=== PATIENT | male | born 1975 | race Two or more races ===

== ENCOUNTER 2017-05-26 16:15 | Emergency (ER) | payer SELFPAY ==
[2017-05-26] MEDS ORDERED: NORMAL SALINE 1000 ML 1,000 ML IV ONE (17:25)
--- NOTE | 2017-05-26 17:26 | ER Document Report ---
ED Medical Screen (RME) - General Chief Complaint: High Blood Pressure Stated Complaint: WEAKNESS,VOMITING Time Seen by Provider: 05/26/17 17:24 Notes: Patient states that he has had vomiting nausea and abdominal cramps since yesterday. He is also had hand tingling. He states he has been somewhat dizzy and weak. Patient states she has a history of hypertension but no other significant past medical problems. He states he normally drinks 1-2 beers a day but yesterday he had about 12 beers. - Related Data Allergies/Adverse Reactions: No Known Allergies Allergy (Unverified 04/03/14 19:43) Past Medical History - Social History Frequency of alcohol use: Heavy Drug Abuse: None - Past Medical History Cardiac Medical History: Reports: Hx Hypertension Renal/ Medical History: Denies: Hx Peritoneal Dialysis - Immunizations Hx Diphtheria, Pertussis, Tetanus Vaccination: No Physical Exam - Vital signs Vitals: Temp Pulse BP Pulse Ox 98.7 F 127 H 191/128 H 98 05/26/17 16:39 05/26/17 16:39 05/26/17 16:39 05/26/17 16:39 Course - Vital Signs Vital signs: Temp Pulse Resp BP Pulse Ox 98.7 F 127 H 191/128 H 98 05/26/17 16:39 05/26/17 16:39 05/26/17 16:39 05/26/17 16:39
[2017-05-26 18:23] LABS: ABSOLUTE BASOPHILS # (AUTO) 0.1 10^3/uL (0.0-0.2); ABSOLUTE LYMPHOCYTES (AUTO) 1.2 10^3/uL (0.5-4.7); ABSOLUTE MONOCYTES (AUTO) 0.5 10^3/uL (0.1-1.4); BASOPHILS % (AUTO) 0.6 % (0-2); EOSINOPHILS % (AUTO) 0.3 % (0-6); HEMATOCRIT 48.6 % (37.9-51.0); HEMOGLOBIN 16.8 g/dL (13.5-17.0); HGB HCT DIFFERENCE 1.8; LYMPHOCYTES % (AUTO) 12.5 % (13-45); MEAN CORPUSCULAR HEMOGLOBIN 32.3 pg (27.0-33.4); MEAN CORPUSCULAR HGB CONC 34.6 g/dL (32.0-36.0); MEAN CORPUSCULAR VOLUME 93 fl (80-97); MONOCYTES % (AUTO) 5.1 % (3-13); RED BLOOD COUNT 5.22 10^6/uL (4.35-5.55); RED CELL DISTRIBUTION WIDTH 13.2 % (11.5-14.0); SEGMENTED NEUTROPHILS % (AUTO) 81.5 % (42-78); WHITE BLOOD COUNT 9.9 10^3/uL (4.0-10.5)
[2017-05-26 18:42] LABS: ALANINE AMINOTRANSFERASE 62 U/L (21-72); ALBUMIN 4.8 g/dL (3.5-5.0); ALKALINE PHOSPHATASE 109 U/L (38-126); ANION GAP 16 (5-19); ASPARTATE AMINO TRANSFERASE 49 U/L (17-59); BILIRUBIN,DIRECT 0.4 mg/dL (0.0-0.4); BILIRUBIN,TOTAL 0.8 mg/dL (0.2-1.3); BLOOD UREA NITROGEN 11 mg/dL (7-20); CALCIUM 9.8 mg/dL (8.4-10.2); CARBON DIOXIDE 24 mmol/L (22-30); CHLORIDE 104 mmol/L (98-107); CREATININE RESULT 0.64 mg/dL (0.52-1.25); GLUCOSE 97 mg/dL (75-110); LIPASE 89.6 U/L (23-300); MAGNESIUM 1.7 mg/dL (1.6-2.3); POTASSIUM 4.2 mmol/L (3.6-5.0); SODIUM 143.5 mmol/L (137-145); TOTAL PROTEIN 8.7 g/dL (6.3-8.2)
[2017-05-26 18:48] LABS: ALCOHOL < 10 mg/dL (NONE DETECTED)
[2017-05-26] MEDS ORDERED: NORMAL SALINE 1000 ML 1,000 ML IV PRN (19:50)
[2017-05-26] MEDS ORDERED: ONDANSETRON HCL INJ/PF 4 MG/2 ML SDV IV ONE (19:50)
[2017-05-26] MEDS ORDERED: LORAZEPAM INJ 2 MG/1 ML VIAL IV ONE (19:50)
[2017-05-26 19:57] LABS: APPEARANCE,URINE CLEAR; BILIRUBIN,URINE NEGATIVE (NEGATIVE); GLUCOSE, URINE NEGATIVE (NEGATIVE); KETONES,URINE NEGATIVE (NEGATIVE); LEUKOCYTE ESTERASE,URINE NEGATIVE (NEGATIVE); NITRITE,URINE NEGATIVE (NEGATIVE); PROTEIN,URINE NEGATIVE (NEGATIVE); URINE SPECIFIC GRAVITY 1.017; UROBILINOGEN,URINE NEGATIVE mg/dL (<2.0)
[2017-05-26] MEDS ORDERED: CLONIDINE HCL 0.2 MG TABLET PO ONE (20:00)
--- NOTE | 2017-05-26 20:00 | RADIOLOGY REPORT (SQ) ---
EXAM DESCRIPTION: CT ABD/PELVIS WITH IV ONLY COMPLETED DATE/TIME: 05/26/2017 7:49 pm REASON FOR STUDY: ab pain COMPARISON: None. TECHNIQUE: CT scan of the abdomen and pelvis performed using helical scanning technique with dynamic intravenous contrast injection. No oral contrast. Images reviewed with lung, soft tissue, and bone windows. Reconstructed coronal and sagittal MPR images reviewed. Delayed images for evaluation of the urinary system also acquired. All images stored on PACS. All CT scanners at this facility use dose modulation, iterative reconstruction, and/or weight based d osing when appropriate to reduce radiation dose to as low as reasonably achievable (ALARA). [facility]: Dose Right [facility]: CareDose [facility]: Dose Right [facility]: Teradose 4D [facility]: People to Remember CONTRAST TYPE AND DOSE: contrast/concentration: Isovue 370.00 mg/ml; Total Contrast Delivered: 82.0 ml; Total Saline Delivered: 43.0 ml RENAL FUNCTION: None required. The patient is less than 50 years old. RADIATION DOSE: Up-to-date CT equipment and radiation dose reduction techniques were employed. CTDIv ol: 7.9 - 10.6 mGy. DLP: 1058 mGy-cm.. LIMITATIONS: Study is limited due to motion artifact. FINDINGS: LOWER CHEST: No significant findings. No nodules or infiltrates. LIVER: Normal size. No masses. No dilated ducts. SPLEEN: Normal size. No focal lesions. PANCREAS: No masses. No significant calcifications. No adjacent inflammation or peripancreatic fluid collections. Pancreatic duct not dilated. GALLBLADDER: No identified stones by CT criteria. No inflammatory changes to suggest cholecystitis. ADRENAL GLANDS: No significant masses or asymmetry. RIGHT KIDNEY AND URETER: No solid masses. No significant calcifications. No hydronephrosis or hyd roureter. LEFT KIDNEY AND URETER: No solid masses. No significant calcifications. No hydronephrosis or hydr oureter. AORTA AND VESSELS: No aneurysm. No dissection. Renal arteries, SMA, celiac without stenosis. RETROPERITONEUM: No retroperitoneal adenopathy, hemorrhage or masses. Couple nonenlarged periaortic lymph nodes are identified. BOWEL AND PERITONEAL CAVITY: No masses or inflammatory changes. No free fluid or peritoneal masses. APPENDIX: Normal. PELVIS: No mass. No free fluid. Normal bladder. ABDOMINAL WALL: No masses. No hernias. BONES: No significant or acute findings. OTHER: No other significant finding. IMPRESSION: NO SIGNIFICANT OR ACUTE FINDING IN THE ABDOMEN OR PELVIS ON CT SCAN WITH IV CONTRAST. TECHNICAL DOCUMENTATION: JOB ID: [id number] Quality ID # [id number]: Final reports with documentation of one or more dose reduction techniques (e.g., Au tomated exposure control, adjustment of the mA and/or kV according to patient size, use of iterative reconstruction technique) 2010 [employer]- All Rights Reserved
[2017-05-26 20:20] LABS: URINE BARBITURATES SCREEN NEGATIVE; URINE METHADONE SCREEN NEGATIVE; URINE OPIATES LOW NEGATIVE; URINE PHENCYCLIDINE SCREEN NEGATIVE
--- NOTE | 2017-05-26 20:39 | ER Document Report ---
ED General - General Chief Complaint: High Blood Pressure Stated Complaint: WEAKNESS,VOMITING Time Seen by Provider: 05/26/17 17:24 Mode of Arrival: Ambulatory Information source: Patient Notes: 41-year-old male who drank 12 beers yesterday presents with complaints of abdominal pain nausea vomiting. Patient notes at this time he has no abdominal pain however was having symptoms intermittently throughout the day. Patient denies any fevers or chills. Notes he normally drinks only 1-2 beers a day Patient denies vomiting any blood - HPI Onset: This morning Onset/Duration: Sudden Quality of pain: Sharp Severity: Mild Pain Level: 1 Associated symptoms: Nausea, Vomiting Exacerbated by: Denies Relieved by: Denies Similar symptoms previously: No Recently seen / treated by doctor: No - Related Data Allergies/Adverse Reactions: No Known Allergies Allergy (Unverified 04/03/14 19:43) Past Medical History - Social History Smoking Status: Current Every Day Smoker Cigarette use (# per day): Yes Chew tobacco use (# tins/day): No Smoking Education Provided: No Frequency of alcohol use: Heavy Drug Abuse: None Family History: Reviewed & Not Pertinent - Past Medical History Cardiac Medical History: Reports: Hx Hypertension Renal/ Medical History: Denies: Hx Peritoneal Dialysis - Immunizations Hx Diphtheria, Pertussis, Tetanus Vaccination: No Review of Systems - Review of Systems Notes: REVIEW OF SYSTEMS: CONSTITUTIONAL : Denies fever, chills, or sweats. Denies recent illness. EENT: Denies eye, ear, throat, or mouth pain or symptoms. Denies nasal or sinus congestion or discharge. Denies throat, tongue, or mouth swelling or difficulty swallowing. CARDIOVASCULAR: Denies chest pain. Denies palpitations or racing or irregular heart beat. Denies ankle edema. RESPIRATORY: Denies cough, cold, or chest congestion. Denies shortness of breath, difficulty breathing, or wheezing. GASTROINTESTINAL: Admits to abdominal pain nausea vomiting GENITOURINARY: Denies difficulty urinating, painful urination, burning, frequency, blood in urine, or discharge. MUSCULOSKELETAL: Denies back or neck pain or stiffness. Denies joint pain or swelling. SKIN: Denies rash, lesions or sores. HEMATOLOGIC : Denies easy bruising or bleeding. LYMPHATIC: Denies swollen, enlarged glands. NEUROLOGICAL: Denies confusion or altered mental status. Denies passing out or loss of consciousness. Denies dizziness or lightheadedness. Denies headache. Denies weakness or paralysis or loss of use of either side. Denies problems with gait or speech. Denies sensory loss, numbness, or tingling. Denies seizures. PSYCHIATRIC: Denies anxiety or stress. Denies depression, suicidal ideation, or homicidal ideation. ALL OTHER SYSTEMS REVIEWED AND NEGATIVE. Dictation was performed using y prime voice recognition software PHYSICAL EXAMINATION: GENERAL: Well-appearing, well-nourished and in no acute distress. HEAD: Atraumatic, normocephalic. EYES: Pupils equal round and reactive to light, extraocular movements intact, sclera anicteric, conjunctiva are normal. ENT: Nares patent, oropharynx clear without exudates. Moist mucous membranes. NECK: Normal range of motion, supple without lymphadenopathy LUNGS: Breath sounds clear to auscultation bilaterally and equal. No wheezes rales or rhonchi. HEART: Regular rate and rhythm without murmurs ABDOMEN: Soft, nontender, nondistended abdomen. No guarding, no rebound. No masses appreciated. Musculoskeletal: Normal range of motion, no pitting or edema. No cyanosis. NEUROLOGICAL: Cranial nerves grossly intact. Normal speech, normal gait. Normal sensory, motor exams PSYCH: Normal mood, normal affect. SKIN: Warm, Dry, normal turgor, no rashes or lesions noted. Physical Exam - Vital signs Vitals: Temp Pulse BP Pulse Ox 98.7 F 127 H 191/128 H 98 05/26/17 16:39 05/26/17 16:39 05/26/17 16:39 05/26/17 16:39 Course - Re-evaluation Re-evalutation: 05/26/17 20:37 Lab work notes no significant abnormality, patient given fluids and Ativan and is otherwise well-appearing no distress 05/26/17 22:49 Patient's vital signs have resolved completely, he feels well will be discharged home with nausea control. It was clarified to me that the patient actually drank 24 beers yesterday which would definitely cause him to be nauseous and vomiting Imaging is negative After performing a Medical Screening Examination, I estimate there is LOW risk for ACUTE APPENDICITIS, BOWEL OBSTRUCTION, ACUTE CHOLECYSTITIS, PERFORATED DIVERTICULITIS, INCARCERATED HERNIA, PANCREATITIS, TESTICULAR TORSION or PERFORATED ULCER, thus I consider the discharge disposition reasonable. Also, there is no evidence or peritonitis, sepsis, or toxicity. I have reevaluated this patient multiple times and no significant life threatening changes are noted. The patient and I have discussed the diagnosis and risks, and we agree with discharging home with close follow-up with the understanding that symptoms and presentations can change. We also discussed returning to the Emergency Department immediately if new or worsening symptoms occur. We have discussed the symptoms which are most concerning (e.g., bloody stool, fever, changing or worsening pain, intractable vomiting - standard verbal up date) that necessitate immediate return. - Vital Signs Vital signs: Temp Pulse Resp BP Pulse Ox 98.7 F 127 H 23 H 167/115 H 99 05/26/17 16:39 05/26/17 16:39 05/26/17 20:30 05/26/17 20:30 05/26/17 20:30 - Laboratory Result Diagrams: 05/26/17 18:00 05/26/17 18:00 Laboratory results interpreted by me: 05/26/17 05/26/17 18:00 18:00 Seg Neutrophils % 81.5 H Lymphocytes % 12.5 L Total Protein 8.7 H - Diagnostic Test Radiology reviewed: Image reviewed, Reports reviewed Discharge - Discharge Clinical Impression: Alcohol use Hypertension Qualifiers: Hypertension type: essential hypertension Qualified Code(s): I10 - Essential ( primary) hypertension Nausea & vomiting Qualifiers: Vomiting type: unspecified Vomiting Intractability: non-intractable Qualified Code(s): R11.2 - Nausea with vomiting, unspecified Condition: Stable Disposition: HOME, SELF-CARE Instructions: High Blood Pressure, Requiring Treatment ([facility]) Additional Instructions: Follow up with your physician tomorrow for further care or return to the ED IMMEDIATELY if symptoms worsen or new concerns occur. If you cannot afford to follow up with your primary care physician a list of low cost clinics have been provided at the end of your discharge papers as well.
[2017-05-26] MEDS ORDERED: ONDANSETRON ODT 4 MG TAB (6 TAB/DSPK) PO PRN (21:41)
[2017-05-26 21:50] VITALS: BP 158/113
== END 2017-05-26 21:50 | disposition home or self-care (01) ==
LOC: ER 16:15
DX: R11.2 Nausea with vomiting, unspecified (principal); R10.9 Unspecified abdominal pain; Z72.89 Other problems related to lifestyle; I10 Essential (primary) hypertension; F17.210 Nicotine dependence, cigarettes, uncomplicated
CPT/HCPCS: 99284; 96361; 96374; 96375; 36415; 80307 ×2; 83690; 83735; 85025; 80053; 81001; 74177; J2060; J2405; J7030

== ENCOUNTER 2017-06-17 17:34 | Emergency (ER) | payer SELFPAY ==
[2017-06-17] MEDS ORDERED: NORMAL SALINE 1000 ML 1,000 ML IV ONE ×3 (18:01→22:00)
--- NOTE | 2017-06-17 18:03 | ER Document Report ---
ED Medical Screen (RME) - General Chief Complaint: Abdominal Pain Stated Complaint: ABDOMINAL,LEG PAIN Time Seen by Provider: 06/17/17 18:01 Notes: Patient presents with severe epigastric pain and vomiting as well as bilateral leg pain. Patient had a similar presentation approximately 2 weeks ago after drinking 24 beers. TRAVEL OUTSIDE OF THE [place] IN LAST 30 DAYS: No - Related Data Allergies/Adverse Reactions: No Known Allergies Allergy (Verified 06/17/17 17:39) Past Medical History - Social History Chew tobacco use (# tins/day): No Frequency of alcohol use: Social Drug Abuse: None - Past Medical History Cardiac Medical History: Reports: Hx Hypercholesterolemia, Hx Hypertension Renal/ Medical History: Denies: Hx Peritoneal Dialysis - Immunizations Hx Diphtheria, Pertussis, Tetanus Vaccination: No Physical Exam - Vital signs Vitals: Temp Resp BP Pulse Ox 98.3 F 18 190/140 H 99 06/17/17 17:39 06/17/17 17:39 06/17/17 17:39 06/17/17 17:39 Course - Vital Signs Vital signs: Temp Pulse Resp BP Pulse Ox 98.3 F 18 190/140 H 99 06/17/17 17:39 06/17/17 17:39 06/17/17 17:39 06/17/17 17:39
[2017-06-17 18:54] LABS: APPEARANCE,URINE CLEAR; BILIRUBIN,URINE NEGATIVE (NEGATIVE); GLUCOSE, URINE NEGATIVE (NEGATIVE); KETONES,URINE NEGATIVE (NEGATIVE); LEUKOCYTE ESTERASE,URINE TRACE (NEGATIVE); NITRITE,URINE NEGATIVE (NEGATIVE); PROTEIN,URINE NEGATIVE (NEGATIVE); URINE SPECIFIC GRAVITY 1.008; UROBILINOGEN,URINE NEGATIVE mg/dL (<2.0)
[2017-06-17] MEDS ORDERED: LIDOCAINE 2% VISCOUS SOLN 20 ML UDCUP PO ONE (18:59)
[2017-06-17] MEDS ORDERED: MAG HYDROX/AL HYDROX/SIMETH SUSP 30 ML UDCUP PO ONE (18:59)
[2017-06-17] MEDS ORDERED: METOCLOPRAMIDE HCL ORAL SOLN 10 MG/10 ML UDCUP PO ONE (18:59)
--- NOTE | 2017-06-17 19:00 | ER Document Report ---
ED GI/ - General Chief Complaint: Abdominal Pain Stated Complaint: ABDOMINAL,LEG PAIN Time Seen by Provider: 06/17/17 18:01 Notes: The patient is a 41-year-old male, past medical history daily alcohol drinker, gastritis, presents with 2 days of intermittent epigastric pain. He is also having nausea and vomited once. Pt also having B/L leg cramping. He denies fevers, back pain, urinary symptoms, chest pain, shortness of breath or rash. TRAVEL OUTSIDE OF THE [place] IN LAST 30 DAYS: No - Related Data Allergies/Adverse Reactions: No Known Allergies Allergy (Verified 06/17/17 17:39) Past Medical History - General Information source: Patient - Social History Smoking Status: Current Some Day Smoker Chew tobacco use (# tins/day): No Frequency of alcohol use: Social Drug Abuse: None Family History: Reviewed & Not Pertinent Patient has suicidal ideation: No Patient has homicidal ideation: No - Past Medical History Cardiac Medical History: Reports: Hx Hypercholesterolemia, Hx Hypertension Renal/ Medical History: Denies: Hx Peritoneal Dialysis - Immunizations Hx Diphtheria, Pertussis, Tetanus Vaccination: No Review of Systems - Review of Systems Notes: REVIEW OF SYSTEMS: CONSTITUTIONAL: -fevers, -chills EENT: -eye pain, -difficulty swallowing, -nasal congestion CARDIOVASCULAR:-chest pain, -syncope. RESPIRATORY: -cough, -SOB GASTROINTESTINAL: +epigastric abdominal pain, +nausea, +vomiting, -diarrhea GENITOURINARY: -dysuria, -hematuria MUSCULOSKELETAL: -back pain, -neck pain SKIN: -rash or skin lesions. HEMATOLOGIC: -easy bruising or bleeding. LYMPHATIC: -swollen, enlarged glands. NEUROLOGICAL: -altered mental status or loss of consciousness, -headache, - neurologic symptoms PSYCHIATRIC: -anxiety, -depression. ALL OTHER SYSTEMS REVIEWED AND NEGATIVE. Physical Exam - Vital signs Vitals: Temp Resp BP Pulse Ox 98.3 F 18 190/140 H 99 06/17/17 17:39 06/17/17 17:39 06/17/17 17:39 06/17/17 17:39 - Notes Notes: PHYSICAL EXAMINATION: GENERAL: Well-appearing, well-nourished and in no acute distress. HEAD: Atraumatic, normocephalic. EYES: Pupils equal round and reactive to light, extraocular movements intact, sclera anicteric, conjunctiva are normal. ENT: nares patent, oropharynx clear without exudates. Moist mucous membranes. NECK: Normal range of motion, supple without lymphadenopathy LUNGS: Breath sounds clear to auscultation bilaterally and equal. No wheezes rales or rhonchi. HEART: Mild tachycardia. ABDOMEN: Soft, mild epigastric tenderness, normoactive bowel sounds. No guarding, no rebound. No masses appreciated. EXTREMITIES: Normal range of motion, no pitting or edema. No cyanosis. NEUROLOGICAL: Cranial nerves grossly intact. Normal speech, normal gait. Normal sensory and motor exams. PSYCH: Normal mood, normal affect. SKIN: Warm, Dry, normal turgor, no rashes or lesions noted. Course - Re-evaluation Re-evalutation: Hx obtained using deputy director computer. Patient appears well. He has epigastric tenderness, but a normal lipase. This may be related to his gastritis from drinking. After GI cocktail, his abdominal pain completely resolved and a repeat abdominal exam reveals non-tenderness in his epigastric region. Told him to cut down on his alcohol use and always take his BP meds. Suspect also a mild component of alcohol withdrawal occurring in the ER with the initial hypertension and tachycardia. After Ativan and fluids, he feels much better. Provided patient with follow-up at the [facility]. - Vital Signs Vital signs: Temp Pulse Resp BP Pulse Ox 98.3 F 20 152/115 H 97 06/17/17 17:39 06/17/17 22:04 06/17/17 22:04 06/17/17 22:04 - Laboratory Result Diagrams: 06/17/17 19:38 06/17/17 19:38 Laboratory results interpreted by me: 06/17/17 06/17/17 06/17/17 18:11 19:38 19:38 WBC 10.6 H Seg Neutrophils % 82.1 H Lymphocytes % 11.3 L Absolute Neutrophils 8.7 H Direct Bilirubin 0.5 H Ur Leukocyte Esterase TRACE H - Diagnostic Test Radiology reviewed: Image reviewed, Reports reviewed Radiology results interpreted by me: CXR: NAD Discharge - Discharge Clinical Impression: Epigastric pain Condition: Stable Disposition: HOME, SELF-CARE Additional Instructions: ABDOMINAL PAIN: There are many causes of abdominal pain. Pain can mean a serious problem requiring surgery (such as appendicitis). It can also be an innocent problem that goes away on its own (such as a viral infection). Often, time must pass to determine the cause of pain. The physician does not feel that hospitalization is necessary, at present. Things may change within the next 24 hours. Call the doctor or come back for re- examination if any problems occur, such as: (1) Pain that becomes more severe, steady, or becomes concentrated in one specific area. Also, pain that is more severe with movement or coughing. (2) Vomiting that persists or becomes more frequent. (3) Blood in the vomitus, urine, or bowel movements. Blood in the stool may have a tarry or black appearance. (4) Shaking chills or fever greater than 100 degrees F. (5) The abdomen becomes more distended or swollen. (6) Bowel movements cease. (7) Failure to improve as expected. NORMAL EXAM AND WORKUP: At this time, your examination and workup show no significant abnormality. No significant abnormal physical findings are noted. All laboratory, EKG, and imaging (x-ray, CT scans, ultrasound) studies that were ordered show no significant abnormality. Although your examination and all studies that were ordered showed no significant abnormal finding, there are no examinations and no studies that are 100% accurate. There is always the possibility that some abnormality could exist and not be detected with physical examination or within the limits and capabilities of laboratory and other studies. You should return or follow up as you were instructed on your visit today for further evaluation if your symptoms do not resolve. ANTINAUSEA MEDICATION: You have been given a medication to suppress nausea and vomiting. This type of medication can be given as a shot, pill, or suppository. It will usually last for many hours. Pills and shots usually last six to eight hours, suppositories last about 12 hours. For the typical illness, only one or two doses of the medication may be necessary. Mild lightheadedness may occur. This type of medicine can cause drowsiness. Do not drive or operate dangerous machinery while under its influence. Do not mix with alcohol. See your doctor at once if you have muscle spasms or tightness, or uncontrollable motions (particularly of the neck, mouth, or jaw). Persistent vomiting or severe lightheadedness should also be evaluated by the physician. FOLLOW-UP CARE: If you have been referred to a physician for follow-up care, call the physician s office for an appointment as you were instructed or within the next two days. If you experience worsening or a significant change in your symptoms, notify the physician immediately or return to the Emergency Department at any time for re-evaluation. Prescriptions: Lisinopril 5 mg PO DAILY #30 tablet Omeprazole Magnesium [Prilosec Otc] 20 mg PO BID #20 tablet.dr Forms: Elevated Blood Pressure Referrals: [facility] [Outside] - Follow up as needed
[2017-06-17 19:18] LABS: URINE BARBITURATES SCREEN NEGATIVE; URINE METHADONE SCREEN NEGATIVE; URINE OPIATES LOW NEGATIVE; URINE PHENCYCLIDINE SCREEN NEGATIVE
[2017-06-17 19:52] LABS: ABSOLUTE BASOPHILS # (AUTO) 0.1 10^3/uL (0.0-0.2); ABSOLUTE EOSINOPHILS # (AUTO) 0.1 10^3/uL (0.0-0.6); ABSOLUTE LYMPHOCYTES (AUTO) 1.2 10^3/uL (0.5-4.7); ABSOLUTE MONOCYTES (AUTO) 0.6 10^3/uL (0.1-1.4); ABSOLUTE NEUT (AUTO) 8.7 10^3/uL (1.7-8.2); BASOPHILS % (AUTO) 0.6 % (0-2); EOSINOPHILS % (AUTO) 0.5 % (0-6); HEMATOCRIT 47.4 % (37.9-51.0); HEMOGLOBIN 16.6 g/dL (13.5-17.0); HGB HCT DIFFERENCE 2.4; LYMPHOCYTES % (AUTO) 11.3 % (13-45); MEAN CORPUSCULAR HEMOGLOBIN 32.8 pg (27.0-33.4); MEAN CORPUSCULAR HGB CONC 35.1 g/dL (32.0-36.0); MEAN CORPUSCULAR VOLUME 94 fl (80-97); MONOCYTES % (AUTO) 5.5 % (3-13); RED BLOOD COUNT 5.07 10^6/uL (4.35-5.55); SEGMENTED NEUTROPHILS % (AUTO) 82.1 % (42-78); WHITE BLOOD COUNT 10.6 10^3/uL (4.0-10.5)
[2017-06-17 20:06] LABS: ALANINE AMINOTRANSFERASE 66 U/L (21-72); ALBUMIN 4.5 g/dL (3.5-5.0); ALCOHOL < 10 mg/dL (NONE DETECTED); ALKALINE PHOSPHATASE 116 U/L (38-126); ANION GAP 13 (5-19); ASPARTATE AMINO TRANSFERASE 53 U/L (17-59); BILIRUBIN,DIRECT 0.5 mg/dL (0.0-0.4); BILIRUBIN,TOTAL 0.8 mg/dL (0.2-1.3); BLOOD UREA NITROGEN 10 mg/dL (7-20); CALCIUM 10.1 mg/dL (8.4-10.2); CARBON DIOXIDE 22 mmol/L (22-30); CHLORIDE 105 mmol/L (98-107); CREATINE KINASE 66 U/L (55-170); CREATININE RESULT 0.58 mg/dL (0.52-1.25); GLUCOSE 95 mg/dL (75-110); POTASSIUM 4.4 mmol/L (3.6-5.0); SODIUM 140.2 mmol/L (137-145); TOTAL PROTEIN 8.1 g/dL (6.3-8.2)
[2017-06-17] MEDS ORDERED: LORAZEPAM INJ 2 MG/1 ML VIAL IV ONE (21:14)
[2017-06-17 22:06] VITALS: BP 152/115
--- NOTE | 2017-06-17 23:52 | EKG REPORT ---
SEVERITY:- ABNORMAL ECG - SINUS TACHYCARDIA FIRST DEGREE AV BLOCK ANTERIOR INFARCT, AGE INDETERMINATE BORDERLINE T ABNORMALITIES, INFERIOR LEADS : Confirmed by: Buck Lloyd 17-Jun-2017 23:52:35
== END 2017-06-17 22:21 | disposition home or self-care (01) ==
LOC: ER 17:34
DX: R10.13 Epigastric pain (principal); R11.2 Nausea with vomiting, unspecified; R25.2 Cramp and spasm; F17.200 Nicotine dependence, unspecified, uncomplicated; I10 Essential (primary) hypertension; Z87.19 Personal history of other diseases of the digestive system; R00.0 Tachycardia, unspecified
CPT/HCPCS: 93005; 99284; 96361; 96374; 36415; 80307 ×2; 82550; 83690; 85025; 80053; 81001; 83880; 93010; J3490; J2060; J7030

== ENCOUNTER 2017-12-29 18:40 | Emergency (ER) | payer SELFPAY ==
[2017-12-29] MEDS ORDERED: ASPIRIN 81 MG TABLET, CHEWABLE PO ONE (19:19)
[2017-12-29] MEDS ORDERED: NORMAL SALINE 1000 ML 1,000 ML IV PRN (19:20)
[2017-12-29] MEDS ORDERED: NORMAL SALINE 1000 ML 1,000 ML IV ONE ×2 (19:20→22:06)
[2017-12-29] MEDS ORDERED: LORAZEPAM INJ 2 MG/1 ML VIAL IV ONE ×2 (19:20→20:12)
--- NOTE | 2017-12-29 19:22 | ER Document Report ---
ED Medical Screen (RME) - General Chief Complaint: Vomiting Stated Complaint: VOMITING Time Seen by Provider: 12/29/17 19:19 Notes: 41 years old male with a history of alcohol abuse, smoking presents today with nausea vomiting, vomited about 20 times, having neck pain of the chest pain as well as abdominal pain. No fever chills or other constitutional symptoms I have greeted and performed a rapid initial assessment of this patient. A comprehensive ED assessment and evaluation of the patient, analysis of test results and completion of the medical decision making process will be conducted by additional ED providers. PHYSICAL EXAMINATION: GENERAL: Well-appearing, well-nourished and in no acute distress. HEAD: Atraumatic, normocephalic. EYES: Pupils equal round extraocular movements intact, conjunctiva are normal. ENT: Nares patent NECK: Normal range of motion LUNGS: No respiratory distress Musculoskeletal: Normal range of motion NEUROLOGICAL: Normal speech, normal gait. Flapping tremor noted PSYCH: Normal mood, normal affect. SKIN: Warm, Dry, normal turgor, no rashes or lesions noted. TRAVEL OUTSIDE OF THE [place] IN LAST 30 DAYS: No - Related Data Allergies/Adverse Reactions: No Known Allergies Allergy (Verified 06/17/17 17:39) Past Medical History - Social History Chew tobacco use (# tins/day): No Frequency of alcohol use: Daily 2 beers/day Drug Abuse: None - Past Medical History Cardiac Medical History: Reports: Hx Hypercholesterolemia, Hx Hypertension Renal/ Medical History: Denies: Hx Peritoneal Dialysis - Immunizations Hx Diphtheria, Pertussis, Tetanus Vaccination: No Physical Exam - Vital signs Vitals: Temp Pulse Resp BP Pulse Ox 99.2 F 141 H 20 152/124 H 98 12/29/17 18:46 12/29/17 18:46 12/29/17 18:46 12/29/17 18:46 12/29/17 18:46 Course - Vital Signs Vital signs: Temp Pulse Resp BP Pulse Ox 99.2 F 141 H 20 152/124 H 98 12/29/17 18:46 12/29/17 18:46 12/29/17 18:46 12/29/17 18:46 12/29/17 18:46
[2017-12-29 20:07] LABS: ABSOLUTE BASOPHILS # (AUTO) 0.1 10^3/uL (0.0-0.2); ABSOLUTE LYMPHOCYTES (AUTO) 1.2 10^3/uL (0.5-4.7); ABSOLUTE MONOCYTES (AUTO) 0.5 10^3/uL (0.1-1.4); ABSOLUTE NEUT (AUTO) 10.3 10^3/uL (1.7-8.2); BASOPHILS % (AUTO) 0.8 % (0-2); EOSINOPHILS % (AUTO) 0.3 % (0-6); HEMATOCRIT 50.5 % (37.9-51.0); HEMOGLOBIN 17.7 g/dL (13.5-17.0); LYMPHOCYTES % (AUTO) 10.1 % (13-45); MEAN CORPUSCULAR HEMOGLOBIN 32.6 pg (27.0-33.4); MEAN CORPUSCULAR HGB CONC 35.1 g/dL (32.0-36.0); MEAN CORPUSCULAR VOLUME 93 fl (80-97); MONOCYTES % (AUTO) 4.3 % (3-13); PLATELET COUNT 296 10^3/uL (150-450); RED BLOOD COUNT 5.43 10^6/uL (4.35-5.55); RED CELL DISTRIBUTION WIDTH 13.3 % (11.5-14.0); SEGMENTED NEUTROPHILS % (AUTO) 84.5 % (42-78); TOTAL CELLS COUNTED % (AUTO) 100 %; WHITE BLOOD COUNT 12.1 10^3/uL (4.0-10.5)
[2017-12-29] MEDS ORDERED: ONDANSETRON HCL INJ/PF 4 MG/2 ML SDV IV ONE (20:12)
--- NOTE | 2017-12-29 20:13 | ER Document Report ---
ED GI/ - General Chief Complaint: Vomiting Stated Complaint: VOMITING Time Seen by Provider: 12/29/17 19:19 Mode of Arrival: Ambulatory Information source: Patient Notes: Pt is a 42 year old alcoholic who presents to the ER today for nausea/vomiting, chills starting this morning. Pt had his last drink last night, states that he usually drinks 24 beer cans a day. He does not want to stop. He states he just "ran out of beer" today and didn't have the money to get any. Pt admits to abdominal pain and a bruise to his left lower side that he doesn't remember how he got. He denies diarrhea, fever that he knows of. He denies chest pain with me although he apparently told triage he did have chest pain. He has no history of any cardiac issues, heart attack, stroke, HTN or HLD. TRAVEL OUTSIDE OF THE [place] IN LAST 30 DAYS: No - Related Data Allergies/Adverse Reactions: No Known Allergies Allergy (Verified 06/17/17 17:39) Past Medical History - General Information source: Patient - Social History Smoking Status: Current Every Day Smoker Chew tobacco use (# tins/day): No Frequency of alcohol use: Daily 2 beers/day Drug Abuse: None Family History: Reviewed & Not Pertinent Patient has suicidal ideation: No Patient has homicidal ideation: No - Past Medical History Cardiac Medical History: Reports: Hx Hypercholesterolemia, Hx Hypertension Renal/ Medical History: Denies: Hx Peritoneal Dialysis - Immunizations Hx Diphtheria, Pertussis, Tetanus Vaccination: No Review of Systems - Review of Systems Constitutional: See HPI EENT: No symptoms reported Cardiovascular: No symptoms reported Respiratory: No symptoms reported Gastrointestinal: See HPI Genitourinary: No symptoms reported Male Genitourinary: No symptoms reported Musculoskeletal: No symptoms reported Skin: No symptoms reported Hematologic/Lymphatic: No symptoms reported Neurological/Psychological: See HPI Physical Exam - Vital signs Vitals: Temp Pulse Resp BP Pulse Ox 99.2 F 141 H 20 152/124 H 98 12/29/17 18:46 12/29/17 18:46 12/29/17 18:46 12/29/17 18:46 12/29/17 18:46 - Notes Notes: PHYSICAL EXAMINATION: GENERAL: uncomfortable, but in no acute distress. HEAD: Atraumatic, normocephalic. EYES: Pupils equal round and reactive to light, extraocular movements intact, sclera anicteric, conjunctiva are normal. ENT: Airway patent NECK: Normal range of motion, supple without lymphadenopathy LUNGS: CTAB and equal. No wheezes rales or rhonchi. HEART: tachycardic, but with regular rhythm without murmurs ABDOMEN: ecchymoses to left lower side, tender, Soft, No guarding, no rebound BACK: no vertebral tenderness, normal ROM GI/: no CVA tenderness EXTREMITIES: Normal range of motion, no pitting edema. No cyanosis. NEUROLOGICAL: Cranial nerves grossly intact. Normal sensory/motor exams. PSYCH: normal affect SKIN: Warm, Dry, normal turgor, see abd above Course - Re-evaluation Re-evalutation: 12/30/17 06:15 labwork is really unremarkable, CT abd with IV contrast due to bruise on left side was performed and negative, chest x ray negative. pt was tachycardic at 140bpm on arrival, after fluids and ativan, down to 99 manually before discharge. pt feels "much better." I do not believe admission is necessary at this time. Pt has no intention of quitting drinking, laughs when I try to educate him on cirrhosis and other negative outcomes from drinking alcohol. and son were here to translate and also do not seem to comprehend how serious his alcohol problem is despite my education. - Vital Signs Vital signs: Temp Pulse Resp BP Pulse Ox 99.2 F 112 H 18 136/92 H 96 12/29/17 18:46 12/29/17 20:10 12/30/17 01:01 12/30/17 01:00 12/30/17 01:01 - Laboratory Result Diagrams: 12/29/17 19:43 12/29/17 19:43 Laboratory results interpreted by me: 12/29/17 12/29/17 19:43 19:43 WBC 12.1 H Hgb 17.7 H Seg Neutrophils % 84.5 H Lymphocytes % 10.1 L Absolute Neutrophils 10.3 H Calcium 10.3 H Direct Bilirubin 0.5 H AST 66 H Alkaline Phosphatase 136 H Total Protein 8.9 H Discharge - Discharge Clinical Impression: Alcohol withdrawal Qualifiers: Complication of substance-induced condition: uncomplicated Qualified Code(s): F10.230 - Alcohol dependence with withdrawal, uncomplicated Condition: Stable Disposition: HOME, SELF-CARE Additional Instructions: Please slow down on your drinking. Return immediately for any new or worsening symptoms. Follow up with primary care provider, call tomorrow to make followup appointment.
[2017-12-29 20:23] LABS: ALANINE AMINOTRANSFERASE 65 U/L (21-72); ALBUMIN 4.8 g/dL (3.5-5.0); ALKALINE PHOSPHATASE 136 U/L (38-126); ANION GAP 18 (5-19); ASPARTATE AMINO TRANSFERASE 66 U/L (17-59); BILIRUBIN,DIRECT 0.5 mg/dL (0.0-0.4); BLOOD UREA NITROGEN 9 mg/dL (7-20); CALCIUM 10.3 mg/dL (8.4-10.2); CARBON DIOXIDE 25 mmol/L (22-30); CHLORIDE 99 mmol/L (98-107); CREATINE KINASE 77 U/L (55-170); GLUCOSE 97 mg/dL (75-110); POTASSIUM 4.5 mmol/L (3.6-5.0); SODIUM 142.2 mmol/L (137-145); TOTAL PROTEIN 8.9 g/dL (6.3-8.2)
[2017-12-29 20:25] LABS: ALCOHOL < 10 mg/dL (NONE DETECTED)
[2017-12-29 20:35] LABS: CREATINE KINASE MB 0.56 ng/mL (<4.55); TROPONIN I < 0.012 ng/mL
--- NOTE | 2017-12-29 21:17 | RADIOLOGY REPORT (SQ) ---
EXAM DESCRIPTION: CHEST SINGLE VIEW COMPLETED DATE/TIME: 12/29/2017 8:53 pm REASON FOR STUDY: Shortness of breath COMPARISON: None. EXAM PARAMETERS: NUMBER OF VIEWS: One view. TECHNIQUE: Single frontal radiographic view of the chest acquired. RADIATION DOSE: NA LIMITATIONS: None. FINDINGS: LUNGS AND PLEURA: No opacities, masses or pneumothorax. No pleural effusion. MEDIASTINUM AND HILAR STRUCTURES: No masses. Contour normal. HEART AND VASCULAR STRUCTURES: Heart normal in size. Normal vasculature. BONES: No acute findings. HARDWARE: None in the chest. OTHER: No other significant finding. IMPRESSION: NO ACUTE RADIOGRAPHIC FINDING IN THE CHEST. TECHNICAL DOCUMENTATION: JOB ID: [id number] [employer]- All Rights Reserved Reading location - IP/workstation name: [email or web address]
[2017-12-29] MEDS ORDERED: DIPHENHYDRAMINE HCL 50 MG/ML VIAL IV ONE (22:05)
[2017-12-29] MEDS ORDERED: DIPHENHYDRAMINE HCL 50 MG/ML VIAL ONE (22:07)
--- NOTE | 2017-12-29 22:28 | RADIOLOGY REPORT (SQ) ---
EXAM DESCRIPTION: CT ABD/PELVIS WITH IV ONLY COMPLETED DATE/TIME: 12/29/2017 10:03 pm REASON FOR STUDY: bruise and pain llq, unknown injury, etoh COMPARISON: 05/26/2017 TECHNIQUE: CT scan of the abdomen and pelvis performed using helical scanning technique with dynamic intravenous contrast injection. No oral contrast. Images reviewed with lung, soft tissue, and bone windows. Reconstructed coronal and sagittal MPR images reviewed. Delayed images for evaluation of the urinary system also acquired. All images stored on PACS. All CT scanners at this facility use dose modulation, iterative reconstruction, and/or weight based d osing when appropriate to reduce radiation dose to as low as reasonably achievable (ALARA). [facility]: Dose Right [facility]: CareDose [facility]: Dose Right [facility]: Teradose 4D [facility]: [employer] CONTRAST TYPE AND DOSE: contrast/concentration: Isovue 370.00 mg/ml; Total Contrast Delivered: 81.0 ml; Total Saline Delivered: 38.0 ml RENAL FUNCTION: Creatinine 0.57 RADIATION DOSE: CT Rad equipment meets quality standard of care and radiation dose reduction techniq ues were employed. CTDIvol: 6.1 mGy. DLP: 677 mGy-cm.. LIMITATIONS: Coronal and sagittal reformatted images not available. FINDINGS: LOWER CHEST: No significant findings. No nodules or infiltrates. LIVER: Low-attenuation. No focal masses. SPLEEN: Normal size. No focal lesions. PANCREAS: No masses. No significant calcifications. No adjacent inflammation or peripancreatic fluid collections. Pancreatic duct not dilated. GALLBLADDER: No identified stones by CT criteria. No inflammatory changes to suggest cholecystitis. ADRENAL GLANDS: No significant masses or asymmetry. RIGHT KIDNEY AND URETER: No solid masses. No significant calcifications. No hydronephrosis or hyd roureter. LEFT KIDNEY AND URETER: No solid masses. No significant calcifications. No hydronephrosis or hydr oureter. AORTA AND VESSELS: No aneurysm. No dissection. Renal arteries, SMA, celiac without stenosis. RETROPERITONEUM: No retroperitoneal adenopathy, hemorrhage or masses. BOWEL AND PERITONEAL CAVITY: Mild colonic diverticulosis with no acute inflammatory changes. APPENDIX: Normal. PELVIS: No mass. No free fluid. Normal bladder. ABDOMINAL WALL: No masses. No hernias. BONES: No significant or acute findings. OTHER: No other significant finding. IMPRESSION: 1. Fatty infiltration of the liver. 2. Diverticulosis coli. TECHNICAL DOCUMENTATION: JOB ID: [id number] Quality ID # [id number]: Final reports with documentation of one or more dose reduction techniques (e.g., Au tomated exposure control, adjustment of the mA and/or kV according to patient size, use of iterative reconstruction technique) 2010 [employer]- All Rights Reserved Reading location - IP/workstation name: [email or web address]
--- NOTE | 2017-12-29 23:30 | EKG REPORT ---
SEVERITY:- OTHERWISE NORMAL ECG - SINUS TACHYCARDIA LEFT AXIS DEVIATION : Confirmed by: Buck Lloyd 29-Dec-2017 23:30:10
[2017-12-30 01:10] VITALS: BP 136/92
== END 2017-12-30 01:17 | disposition home or self-care (01) ==
LOC: ER 18:40
DX: F10.230 Alcohol dependence with withdrawal, uncomplicated (principal); R11.2 Nausea with vomiting, unspecified; R68.83 Chills (without fever); S30.1XXA Contusion of abdominal wall, initial encounter; X58.XXXA Exposure to other specified factors, initial encounter; F17.200 Nicotine dependence, unspecified, uncomplicated; R00.0 Tachycardia, unspecified
CPT/HCPCS: 93005; 96376; 99285; 96361; 96374; 96375; 36415; 82553; 80307; 82550; 85025; 80053; 84484; 71045; 74177; 93010; J2060; J2405; J7030; J1200

== ENCOUNTER 2018-11-01 20:05 | Emergency (ER) | payer SELFPAY ==
--- NOTE | 2018-11-01 23:33 | ER Document Report ---
ED Medical Screen (RME) - General Chief Complaint: Headache Stated Complaint: HEADACHE Time Seen by Provider: 11/01/18 23:18 Notes: Kazakh-speaking male with history of essential hypertension and hyperlipidemia presents for chief complaint of not feeling well. He states he has been drinking every day and has not taken his blood pressure medications since Thursday. TRAVEL OUTSIDE OF THE [place] IN LAST 30 DAYS: No - Related Data Allergies/Adverse Reactions: No Known Allergies Allergy (Verified 11/01/18 20:08) Past Medical History - Social History Frequency of alcohol use: Heavy - Past Medical History Cardiac Medical History: Reports: Hx Hypercholesterolemia, Hx Hypertension Renal/ Medical History: Denies: Hx Peritoneal Dialysis - Immunizations Hx Diphtheria, Pertussis, Tetanus Vaccination: No Physical Exam - Vital signs Vitals: Temp Pulse Resp BP Pulse Ox 98.2 F 114 H 16 159/115 H 96 11/01/18 21:29 11/01/18 21:29 11/01/18 21:29 11/01/18 21:29 11/01/18 21:29 Course - Vital Signs Vital signs: Temp Pulse Resp BP Pulse Ox 98.2 F 114 H 16 159/115 H 96 11/01/18 21:29 11/01/18 21:29 11/01/18 21:29 11/01/18 21:29 11/01/18 21:29
[2018-11-02] MEDS ORDERED: LIDOCAINE 2% VISCOUS SOLN 20 ML UDCUP PO ONE (00:39)
[2018-11-02] MEDS ORDERED: MAG HYDROX/AL HYDROX/SIMETH SUSP 30 ML UDCUP PO ONE (00:39)
[2018-11-02] MEDS ORDERED: DIAZEPAM INJ 10 MG/2 ML DISP.SYRIN IV ONE (00:39)
[2018-11-02] MEDS ORDERED: FAMOTIDINE 20 MG TABLET PO ONE (00:39)
[2018-11-02] MEDS ORDERED: SUCRALFATE 1 GM TABLET PO ONE (00:39)
[2018-11-02] MEDS ORDERED: METOCLOPRAMIDE HCL ORAL SOLN 10 MG/10 ML UDCUP PO ONE (00:39)
[2018-11-02] MEDS ORDERED: METOPROLOL TARTRATE 25 MG TABLET PO ONE (00:40)
[2018-11-02] MEDS ORDERED: NORMAL SALINE 1000 ML 1,000 ML IV ONE (00:40)
[2018-11-02] MEDS ORDERED: AMLODIPINE BESYLATE 10 MG TABLET PO ONE (00:40)
--- NOTE | 2018-11-02 00:44 | ER Document Report ---
ED General - General Chief Complaint: Headache Stated Complaint: HEADACHE Time Seen by Provider: 11/01/18 23:18 Notes: Patient is a 42-year-old male with a past medical history of chronic alcoholism, essential hypertension, presents complaining of 2 weeks of epigastric abdominal discomfort with reflux into his chest. Patient reports that his symptoms started gradually, been progressively worsening since onset. Described as a throbbing, burning, aching pain to the affected area. States that it is worsened by eating or drinking alcohol. States that he drinks "all day every day". This has been the case for at least 4 months. He does report that if he does not drink alcohol he becomes very sweaty, is unable to sleep, becomes tremulous. Is not ready to quit alcohol tonight. He denies shortness of breath but does report generally daily, global, throbbing headaches. No associated weakness, numbness or confusion. Has not taken his high blood pressure medications for the past 2-3 weeks stating that he is concerned about taking them in the context of drinking alcohol. The history and physical exam was obtained by the provider using Estonian. A formal hospital supervisor landscape was offered to the patient and any family at the bedside at the beginning of the encounter and was declined. TRAVEL OUTSIDE OF THE [place] IN LAST 30 DAYS: No - Related Data Allergies/Adverse Reactions: No Known Allergies Allergy (Verified 11/01/18 20:08) Past Medical History - General Information source: Patient - Social History Smoking Status: Current Every Day Smoker Frequency of alcohol use: Heavy Drug Abuse: None Lives with: Spouse/Significant other Family History: Reviewed & Not Pertinent Patient has suicidal ideation: No Patient has homicidal ideation: No - Past Medical History Cardiac Medical History: Reports: Hx Hypercholesterolemia, Hx Hypertension Renal/ Medical History: Denies: Hx Peritoneal Dialysis - Immunizations Hx Diphtheria, Pertussis, Tetanus Vaccination: No Review of Systems - Review of Systems Notes: Constitutional: Negative for fever. HENT: Negative for sore throat. Eyes: Negative for visual changes. Cardiovascular: Positive for chest pain. Respiratory: Negative for shortness of breath. Gastrointestinal: Positive for upper abdominal pain, nausea and vomiting Genitourinary: Negative for dysuria. Musculoskeletal: Negative for back pain. Skin: Negative for rash. Neurological: Positive for headaches 10 point ROS negative except as marked above and in HPI. Physical Exam - Vital signs Vitals: Temp Pulse Resp BP Pulse Ox 98.2 F 114 H 16 159/115 H 96 11/01/18 21:29 11/01/18 21:29 11/01/18 21:29 11/01/18 21:29 11/01/18 21:29 Interpretation: Hypertensive, Tachycardic Notes: PHYSICAL EXAMINATION: GENERAL: Appears moderately unwell but in no acute distress HEAD: Atraumatic, normocephalic. EYES: Pupils equal round and reactive to light, extraocular movements intact, sclera anicteric, conjunctiva are normal. ENT: nares patent, oropharynx clear without exudates. Moderately dry mucous membranes. NECK: Normal range of motion, supple without lymphadenopathy LUNGS: Breath sounds clear to auscultation bilaterally and equal. No wheezes rales or rhonchi. HEART: Regular tachycardia without murmurs ABDOMEN: Soft, mild tenderness to the epigastrium but no other localized areas of tenderness, normoactive bowel sounds. No guarding, no rebound. No masses appreciated. EXTREMITIES: Normal range of motion, no pitting or edema. No cyanosis. NEUROLOGICAL: No focal neurological deficits. Moves all extremities spontaneously and on command. Moderately tremulous PSYCH: Normal mood, normal affect. SKIN: Warm, Dry, normal turgor, no rashes or lesions noted. Course - Re-evaluation Re-evalutation: 11/02/18 00:43 Patient presents with epigastric abdominal pain with associated reflux symptoms most consistent with likely alcoholic gastritis. Patient has no focal abdominal tenderness on examination down very mild discomfort in the epigastrium. Clinical history is not consistent with biliary pathology nor his exam. Lipase and LFTs are pending. Differential would certainly include alcoholic hepatitis, alcoholic pancreatitis. based on history and exam, I do not suspect ACS, pulmonary embolus, SBO, mesenteric ischemia, acute pancreatitis, biliary pathology, or an abdominal aortic dissection. Patient does relate a history also consistent with alcoholism and associated alcohol withdrawal with failure to take alcohol. After a long conversation with him and his he recognizes that he is not yet ready to quit drinking alcohol. Will await labs and reassess the patient. In the interim will treat with a GI cocktail, Carafate, famotidine, IV diazepam, IV fluids. 11/02/18 01:53 Lipase, LFTs normal. Patient overall much improved after medication administration. Heart rate improved, blood pressure improved. States he overall symptomatically feels much improved. At this time will discharge with return precautions and follow-up recommendations. Verbal discharge instructions given a the bedside and opportunity for questions given. Medication warnings reviewed. Patient is in agreement with this plan and has verbalized understanding of return precautions and the need for primary care follow-up in the next 24-72 hours. - Vital Signs Vital signs: Temp Pulse Resp BP Pulse Ox 98.2 F 114 H 27 H 161/120 H 93 11/01/18 21:29 11/01/18 21:29 11/02/18 01:06 11/02/18 01:06 11/02/18 01:06 - Laboratory Result Diagrams: 11/02/18 01:00 11/02/18 01:00 - Diagnostic Test Radiology reviewed: Image reviewed, Reports reviewed Radiology results interpreted by me: 11/02/18 01:54 Chest x-ray: No acute infiltrate or pneumothorax - EKG Interpretation by Me Additional EKG results interpreted by me: 11/02/18 01:54 Sinus rhythm, rate 95. First-degree AV block. No ST elevations or depressions. QTC is 452. Discharge - Discharge Clinical Impression: Alcoholism /alcohol abuse, Upper abdominal pain, Essential hypertension Alcoholic gastritis Qualifiers: Chronicity: acute Gastritis bleeding: without bleeding Qualified Code(s): K29.20 - Alcoholic gastritis without bleeding Nausea and vomiting Qualifiers: Vomiting type: unspecified Vomiting Intractability: non-intractable Qualified Code(s): R11.2 - Nausea with vomiting, unspecified Condition: Good Disposition: HOME, SELF-CARE Additional Instructions: Your symptoms appear to be most consistent with stomach or upper intestinal irritation. Please begin taking famotidine 40 mg in the morning and 40 mg at night. Take Carafate prior to meals. You may also take medicine such as Pepto- Bismol or Tums to assist with your pain. Please return to emergency department immediately if you have worsening of your pain, shortness of breath, vomiting, become unable to exert yourself due to pain or difficulty breathing, you pass out, or have any pain that radiates into your arms, jaw, or back. Please also return if you have any additional symptoms that are concerning to you. As we have discussed, the most important thing is lifestyle changes. You need to avoid smoking, sodas, tea, coffee, alcohol, spicy foods, and acidic foods such as citrus fruits, tomato based products, berries, and most fruit juices. Prescriptions: Famotidine 40 mg PO BID #60 tablet Sucralfate [Carafate 1 gm Tablet] 1 gm PO ACHS #120 tablet
[2018-11-02 01:14] LABS: ABSOLUTE BASOPHILS # (AUTO) 0.1 10^3/uL (0.0-0.2); ABSOLUTE EOSINOPHILS # (AUTO) 0.2 10^3/uL (0.0-0.6); ABSOLUTE LYMPHOCYTES (AUTO) 1.9 10^3/uL (0.5-4.7); ABSOLUTE MONOCYTES (AUTO) 0.5 10^3/uL (0.1-1.4); ABSOLUTE NEUT (AUTO) 2.9 10^3/uL (1.7-8.2); EOSINOPHILS % (AUTO) 3.7 % (0-6); HEMOGLOBIN 15.7 g/dL (13.5-17.0); LYMPHOCYTES % (AUTO) 34.3 % (13-45); MEAN CORPUSCULAR HEMOGLOBIN 32.5 pg (27.0-33.4); MEAN CORPUSCULAR HGB CONC 34.9 g/dL (32.0-36.0); MEAN CORPUSCULAR VOLUME 93 fl (80-97); MONOCYTES % (AUTO) 8.6 % (3-13); PLATELET COUNT 296 10^3/uL (150-450); RED BLOOD COUNT 4.82 10^6/uL (4.35-5.55); RED CELL DISTRIBUTION WIDTH 12.8 % (11.5-14.0); SEGMENTED NEUTROPHILS % (AUTO) 52.4 % (42-78); TOTAL CELLS COUNTED % (AUTO) 100 %; WHITE BLOOD COUNT 5.6 10^3/uL (4.0-10.5)
[2018-11-02 01:35] LABS: ALANINE AMINOTRANSFERASE 47 U/L (21-72); ALBUMIN 4.1 g/dL (3.5-5.0); ALKALINE PHOSPHATASE 88 U/L (38-126); ANION GAP 11 (5-19); ASPARTATE AMINO TRANSFERASE 50 U/L (17-59); BILIRUBIN,DIRECT 0.3 mg/dL (0.0-0.4); BILIRUBIN,TOTAL 0.4 mg/dL (0.2-1.3); BLOOD UREA NITROGEN 9 mg/dL (7-20); CALCIUM 9.1 mg/dL (8.4-10.2); CARBON DIOXIDE 22 mmol/L (22-30); CHLORIDE 106 mmol/L (98-107); GLUCOSE 106 mg/dL (75-110); LIPASE 167.2 U/L (23-300); POTASSIUM 4.5 mmol/L (3.6-5.0); SODIUM 138.7 mmol/L (137-145); TOTAL PROTEIN 7.2 g/dL (6.3-8.2)
--- NOTE | 2018-11-02 01:39 | RADIOLOGY REPORT (SQ) ---
EXAM DESCRIPTION: XR CHEST 1 VIEW COMPLETED DATE/TME: 11/02/2018 00:39 CLINICAL HISTORY: 42 years, Male, cp Comparison: None FINDINGS: No focal lung consolidation. No pleural effusion. No pneumothorax. Cardiac and mediastinal silhouette is unremarkable. No acute osseous abnormality. Soft tissues are unremarkable. IMPRESSION: No acute findings. No focal lung consolidation.
[2018-11-02] MEDS ORDERED: PANTOPRAZOLE SODIUM 20 MG TABLET.DR PO ONE (01:59)
[2018-11-02] MEDS ORDERED: ONDANSETRON HCL INJ/PF 4 MG/2 ML SDV ONE (02:02)
[2018-11-02 02:14] VITALS: BP 150/110
--- NOTE | 2018-11-02 07:48 | EKG REPORT ---
SEVERITY:- ABNORMAL ECG - SINUS RHYTHM FIRST DEGREE AV BLOCK LAD, CONSIDER LEFT ANTERIOR FASCICULAR BLOCK BORDERLINE T ABNORMALITIES, INFERIOR LEADS : Confirmed by: Roberto Peace MD 02-Nov-2018 07:48:05
== END 2018-11-02 02:20 | disposition home or self-care (01) ==
LOC: ER 20:05
DX: F10.10 Alcohol abuse, uncomplicated (principal); K29.20 Alcoholic gastritis without bleeding; R11.2 Nausea with vomiting, unspecified; R51 Headache; R10.13 Epigastric pain; F17.200 Nicotine dependence, unspecified, uncomplicated; E78.00 Pure hypercholesterolemia, unspecified; I10 Essential (primary) hypertension
CPT/HCPCS: 93005; 99284; 96361; 96374; 36415; 83690; 85025; 80053; 84484; 71045; 93010; J3360; J3490 ×2; J2405; J7030

== ENCOUNTER 2020-06-11 18:46 | Emergency (ER) | payer SELFPAY ==
--- NOTE | 2020-06-11 21:48 | RADIOLOGY REPORT (SQ) ---
EXAM DESCRIPTION: XR CHEST 1 VIEW COMPLETED DATE/TME: 06/11/2020 21:12 CLINICAL HISTORY: 44 years, Male, chest pain COMPARISON: 11/02/2018. TECHNIQUE: Single frontal view of the chest . FINDINGS: Cardiomediastinal silhouette is not enlarged. No suspicious acute lung pleural bone abnormalities. IMPRESSION: No acute findings in the chest.
--- NOTE | 2020-06-11 21:54 | RADIOLOGY REPORT (SQ) ---
EXAM DESCRIPTION: CT HEAD WITHOUT IV CONTRAST COMPLETED DATE/TME: 06/11/2020 21:19 CLINICAL HISTORY: 44 years, Male, headache, L eye pain COMPARISON: CT from 04/03/2014. TECHNIQUE: Axial images without IV contrast. Sagittal coronal reconstruction. Images stored on PACS. All CT scanners at this facility use dose modulation, iterative reconstruction, and/or weight based dosing when appropriate to reduce radiation dose to as low as reasonably achievable (ALARA). FINDINGS: Normal size ventricles. No acute intra-axial or extra-axial abnormalities. Mastoid air cells and bony calvarium without acute findings. Pituitary gland is not enlarged. Moderate bilateral ethmoid sinus disease. Mild left sphenoid and bilateral frontal sinus disease. Bilateral chronic maxillary sinus disease worse on the left Prominent deviation of the nasal septum to the right. Occlusion of both ostiomeatal units. IMPRESSION: 1. No suspicious intracranial abnormalities. 2. Significant chronic martinez sinusitis. Similar findings were present in 2013. Unchanged significant deviation of the nasal septum to the right. TECHNICAL DOCUMENTATION: Quality ID # [id number]: Final reports with documentation of one or more dose reduction techniques (e.g., Automated exposure control, adjustment of the mA and/or kV according to patient size, use of iterative reconstruction technique) copyright 2011 [employer]- All Rights Reserved
--- NOTE | 2020-06-11 22:01 | ER Document Report ---
ED Medical Screen (RME) - General Chief Complaint: Shortness Of Breath Stated Complaint: CHEST PAIN/SHORTNESS OF BREATH Time Seen by Provider: 06/11/20 20:43 Mode of Arrival: Ambulatory Information source: Patient Notes: 44-year-old male patient presents the emergency department chief complaint of 2- week onset of left orbital pain that radiates to the back of his head and left ear. Patient reports the pain is severe. He also reports chest tightness with short of breath that has been ongoing for approximately 1 week. He denies any recent fevers, chills, cough or congestion. Lung sounds clear and equal bilaterally. No obvious abnormality on initial eye exam in triage. I have greeted and performed a rapid initial assessment of this patient. A comprehensive ED assessment and evaluation of the patient, analysis of test results and completion of the medical decision making process will be conducted by additional ED providers. I have specifically instructed the patient or family members with the patient to immediately return to any nursing staff should anything change in the patient's condition or with their chief complaint. TRAVEL OUTSIDE OF THE [place] IN LAST 30 DAYS: No - Related Data Allergies/Adverse Reactions: No Known Allergies Allergy (Verified 06/11/20 20:40) Home Medications: amlodipine, simvastatin. Past Medical History - Social History Chew tobacco use (# tins/day): No Frequency of alcohol use: daily 4 40s - Past Medical History Cardiac Medical History: Reports: Hx Hypercholesterolemia, Hx Hypertension Renal/ Medical History: Denies: Hx Peritoneal Dialysis - Immunizations Hx Diphtheria, Pertussis, Tetanus Vaccination: No Physical Exam - Vital signs Vitals: Temp Pulse Resp BP Pulse Ox 99.0 F 117 H 18 148/103 H 96 06/11/20 19:25 06/11/20 19:25 06/11/20 19:25 06/11/20 19:25 06/11/20 19:25 Course - Vital Signs Vital signs: Temp Pulse Resp BP Pulse Ox 99.0 F 117 H 18 148/103 H 96 06/11/20 19:25 06/11/20 19:25 06/11/20 19:25 06/11/20 19:25 06/11/20 19:25 - Laboratory Result Diagrams: 06/11/20 21:23 06/11/20 21:23
[2020-06-11 22:06] LABS: ABSOLUTE BASOPHILS # (AUTO) 0.1 10^3/uL (0.0-0.2); ABSOLUTE EOSINOPHILS # (AUTO) 0.3 10^3/uL (0.0-0.6); ABSOLUTE LYMPHOCYTES (AUTO) 2.3 10^3/uL (0.5-4.7); ABSOLUTE MONOCYTES (AUTO) 0.4 10^3/uL (0.1-1.4); ABSOLUTE NEUT (AUTO) 2.8 10^3/uL (1.7-8.2); EOSINOPHILS % (AUTO) 4.4 % (0-6); HEMATOCRIT 44.4 % (37.9-51.0); HEMOGLOBIN 15.4 g/dL (13.5-17.0); LYMPHOCYTES % (AUTO) 39.9 % (13-45); MEAN CORPUSCULAR HEMOGLOBIN 33.9 pg (27.0-33.4); MEAN CORPUSCULAR HGB CONC 34.7 g/dL (32.0-36.0); MEAN CORPUSCULAR VOLUME 98 fl (80-97); MONOCYTES % (AUTO) 6.4 % (3-13); PLATELET COUNT 376 10^3/uL (150-450); RED BLOOD COUNT 4.54 10^6/uL (4.35-5.55); SEGMENTED NEUTROPHILS % (AUTO) 48.3 % (42-78); TOTAL CELLS COUNTED % (AUTO) 100 %; WHITE BLOOD COUNT 5.7 10^3/uL (4.0-10.5)
[2020-06-11 22:12] LABS: ALBUMIN 4.3 g/dL (3.5-5.0); ALKALINE PHOSPHATASE 103 U/L (38-126); ANION GAP 14 (5-19); ASPARTATE AMINO TRANSFERASE 24 U/L (17-59); BILIRUBIN,TOTAL 0.2 mg/dL (0.2-1.3); BLOOD UREA NITROGEN 8 mg/dL (7-20); CALCIUM 9.3 mg/dL (8.4-10.2); CARBON DIOXIDE 21 mmol/L (22-30); CHLORIDE 109 mmol/L (98-107); GLUCOSE 108 mg/dL (75-110); POTASSIUM 4.6 mmol/L (3.6-5.0); TOTAL PROTEIN 7.6 g/dL (6.3-8.2)
--- NOTE | 2020-06-11 22:35 | EKG REPORT ---
SEVERITY:- ABNORMAL ECG - SINUS TACHYCARDIA LAD, CONSIDER LEFT ANTERIOR FASCICULAR BLOCK BORDERLINE R WAVE PROGRESSION, ANTERIOR LEADS BORDERLINE T ABNORMALITIES, INFERIOR LEADS : Confirmed by: Buck Lloyd 11-Jun-2020 22:35:10
[2020-06-12] MEDS ORDERED: LABETALOL HCL INJ 20 MG/4 ML DISP.SYRIN IV ONE ×2 (08:25→10:36)
[2020-06-12] MEDS ORDERED: OXYCODONE-ACETAMINOPHEN 5-325 MG TABLET PO ONE (08:26)
--- NOTE | 2020-06-12 08:29 | ER Document Report ---
ED General - General Chief Complaint: Shortness Of Breath Stated Complaint: CHEST PAIN/SHORTNESS OF BREATH Time Seen by Provider: 06/11/20 20:43 Mode of Arrival: Ambulatory TRAVEL OUTSIDE OF THE [place] IN LAST 30 DAYS: No - HPI Notes: Chief complaint: Headache, cough, exertional dyspnea and weakness History of present illness: 44-year-old male male presents the emergency department chief complaint of 2-week onset of left orbital pain that radiates to the back of his head and left ear. Patient reports the pain is severe. He also reports chest tightness with short of breath that has been ongoing for approximately 1 week. He smokes less than 1/2 pack of cigarettes per day. Denies sputum production or hemoptysis. Patient has been on medication for his blood pressure and is followed by [facility]. He does not know the name of his blood pressure medicine and says he may have "missed a few doses". He denies any history of coronary disease. He denies any use of cocaine. He denies any recent fevers, chills, cough or congestion. - Related Data Allergies/Adverse Reactions: No Known Allergies Allergy (Verified 06/11/20 20:40) Home Medications: amlodipine, simvastatin. Past Medical History - General Information source: Patient - Social History Smoking Status: Current Every Day Smoker Chew tobacco use (# tins/day): No Frequency of alcohol use: daily 4 40s Drug Abuse: None Lives with: Family Family History: Reviewed & Not Pertinent Patient has homicidal ideation: No - Past Medical History Cardiac Medical History: Reports: Hx Hypercholesterolemia, Hx Hypertension Endocrine Medical History: Denies: Hx Diabetes Mellitus Type 1, Hx Diabetes M ellitus Type 2 Renal/ Medical History: Denies: Hx Peritoneal Dialysis Surgical Hx: Negative - Immunizations Hx Diphtheria, Pertussis, Tetanus Vaccination: No Review of Systems - Review of Systems Notes: Constitutional: Negative for fever. HENT: Negative for sore throat. Eyes: Negative for visual changes. Cardiovascular: As per HPI Respiratory: As per HPI. Gastrointestinal: Negative for abdominal pain, vomiting or diarrhea. Genitourinary: Negative for dysuria. Musculoskeletal: Negative for back pain. Skin: Negative for rash. Neurological: Negative for headaches, weakness or numbness. 10 point ROS negative except as marked above and in HPI. Physical Exam - Vital signs Vitals: Temp Pulse Resp BP Pulse Ox 99.0 F 117 H 18 148/103 H 96 06/11/20 19:25 06/11/20 19:25 06/11/20 19:25 06/11/20 19:25 06/11/20 19:25 - Notes Notes: GENERAL: Well-developed well-nourished appearing in no acute distress. SKIN: Good turgor no rashes. HEAD: Mild diffuse tenderness with sinuses to percussion. Normocephalic atraumatic. EYES: PERRLA. EOMI. Conjunctivae and sclerae clear. EARS: CANALS AND TMS CLEAR. NOSE: CLEAR. MOUTH: Moist mucosa. Good dentition. No stridor or edema. No drooling. NECK: Supple. No masses or thyromegaly. No adenopathy. Carotids 2+ without bruits. No JVD. BACK: Symmetrical without tenderness. CHEST: Respirations unlabored. Breath sounds clear and symmetrical. HEART: Regular rhythm. No murmur gallop or rub. ABDOMEN: Soft nontender without masses, organomegaly or rebound. Bowel sounds normally active. No bruits. GENITALIA: Deferred. EXTREMITIES: No edema. No calf tenderness. Cap refill less than 1.5 seconds. Dorsalis pedis and posterior tibial pulses 3+ and symmetrical. NEUROLOGICAL: GCS 15. Alert and oriented x3. Normal gait. Fluent speech. Cranial nerves II through XII intact. Sensorimotor and cerebellar normal. Normal tone. PSYCHIATRIC: Appropriate affect. Course - Re-evaluation Re-evalutation: 06/12/20 12:19 Patient blood pressure was lowered with IV labetalol. EKG and serial troponins unremarkable. Head CT remarkable only for sinusitis. Chest x-ray normal. Patient was symptomatically improved after administration of Toradol. Stable for outpatient management. Instructed to stop smoking. I will place him on antibiotic and give him some medication for pain and for his blood pressure. He is instructed to follow-up with his primary care doctor within the next 24 hours. Findings, clinical impression and plan of treatment have been discussed with patient/family. Understanding of current findings and recommendations has been acknowledged by them and there is agreement regarding disposition and follow-up. - Vital Signs Vital signs: Temp Pulse Resp BP Pulse Ox 99.0 F 112 H 19 163/116 H 96 06/12/20 06:55 06/12/20 09:00 06/12/20 10:30 06/12/20 10:30 06/12/20 10:30 - Laboratory Result Diagrams: 06/11/20 21:23 06/11/20 21:23 Laboratory results interpreted by me: 06/11/20 06/11/20 21:23 21:23 MCV 98 H MCH 33.9 H Chloride 109 H Carbon Dioxide 21 L - Diagnostic Test Radiology reviewed: Image reviewed, Reports reviewed Radiology results interpreted by me: 06/12/20 12:19 Chest X-Ray 06/11/20 20:56 IMPRESSION: No acute findings in the chest. Head CT 06/11/20 20:56 IMPRESSION: 1. No suspicious intracranial abnormalities. 2. Significant chronic martinez sinusitis. Similar findings were present in 2013. Unchanged significant deviation of the nasal septum to the right. TECHNICAL DOCUMENTATION: Quality ID # [id number]: Final reports with documentation of one or more dose reduction techniques (e.g., Automated exposure control, adjustment of the mA and/or kV according to patient size, use of iterative reconstruction technique) copyright 2011 [employer]- All Rights Reserved - EKG Interpretation by Me Additional EKG results interpreted by me: 06/12/20 08:33 Twelve-lead EKG reviewed by me contemporaneously: 1854 hrs. Indication for study: Hypertension Rhythm: Sinus tachycardia Rate: 116 Intervals: Normal QRS axis: -[address]/T wave changes: None Comparison with prior tracing: No significant interval change since prior study 11/02/2018 Interpretation: Sinus tachycardia. Left anterior fascicular block. Critical Care Note - Critical Care Note Total time excluding time spent on procedures (mins): 35 - IV Labetalol Discharge - Discharge Clinical Impression: Hypertensive urgency, Cigarette smoker Acute sinusitis Qualifiers: Sinusitis location: pansinusitis Recurrence: recurrent Qualified Code(s): J01.41 - Acute recurrent pansinusitis Condition: Stable Disposition: HOME, SELF-CARE Additional Instructions: Take prescribed medications. Stop smoking. Return here as needed for new or worsening symptoms. See your primary care doctor within the next 24 hours for follow-up. You have been provided a work note for the next 3 days. Prescriptions: Ketorolac Tromethamine [Toradol 10 mg Tablet] 10 mg PO Q6HP PRN 10 Days #20 tablet PRN Reason: Amoxicillin/Potassium Clav [Augmentin 875-125 Tablet] 1 tab PO Q12 10 Days #20 tablet Lisinopril/Hydrochlorothiazide [Lisinopril-Hctz 10-12.5 mg Tab] 1 each PO DAILY 30 Days #30 tablet Forms: Elevated Blood Pressure, Return to Work
[2020-06-12 13:06] VITALS: BP 165/110
== END 2020-06-12 13:07 | disposition home or self-care (01) ==
LOC: ER 18:46
DX: I16.0 Hypertensive urgency (principal); I10 Essential (primary) hypertension; J01.41 Acute recurrent pansinusitis; R51.9 Headache, unspecified; H92.02 Otalgia, left ear; R07.89 Other chest pain; R06.02 Shortness of breath; R00.0 Tachycardia, unspecified; I44.4 Left anterior fascicular block; F17.210 Nicotine dependence, cigarettes, uncomplicated; E78.00 Pure hypercholesterolemia, unspecified; Z79.899 Other long term (current) drug therapy
CPT/HCPCS: 93005; 99285; 96374; 36415; 85025; 80053; 84484; 71045; 70450; 93010; J3490